=== PATIENT | female | born 1955 | race Caucasian/White ===

== ENCOUNTER 2020-05-14 11:20 | Emergency (ER) | payer OTHER ==
[2020-05-14] MEDS ORDERED: IBUPROFEN 400 MG TAB ONE (12:27)
[2020-05-14] MEDS ORDERED: HYDROCODONE/APAP 5/325 MG TAB ONE (12:27)
--- NOTE | 2020-05-14 12:55 | EDPHYS ---
Physician Documentation [facility] Name: Isis Peña Age: 65 yrs Sex: Female : 1955 Arrival Date: 05/14/2020 Time: 11: Bed 24 Private MD: ED Physician Radhames Otero HPI: 05/14 13:20 This 65 yrs old Female presents to ER via Wheelchair with complaints of Knee kb Pain. 13:21 The patient presents with decreased range of motion, pain, swelling, tenderness. The kb complaints affect the left knee. Context: The problem was sustained at home, resulted from 80lb dog ran into leg, the patient is not able to bear weight, the patient is not able to ambulate. Onset: The symptoms/episode began/occurred today. Modifying factors: The symptoms are alleviated by nothing. the symptoms are aggravated by movement, weight bearing, bending knee. Associated signs and symptoms: Pertinent positives: swelling, Pertinent negatives calf tenderness, fever, nausea, numbness, rash, tingling, vomiting, warmth, weakness. Treatment prior to arrival includes: no previous treatment. Severity of symptoms: At their worst the symptoms were moderate, in the emergency department the symptoms are unchanged. The patient has not experienced similar symptoms in the past. The patient has not recently seen a physician. Historical: - Allergies: 11:34 PENICILLINS; ll1 - PSHx: 11:34 ; Tonsillectomy; ll1 - Immunization history:: Flu vaccine is not up to date. - Social history:: Smoking status: Patient denies any tobacco usage or history of. ROS: 13:15 Constitutional: Negative for fever, chills, and weight loss, Cardiovascular: Negative kb for chest pain, palpitations, and edema, Respiratory: Negative for shortness of breath, cough, wheezing, and pleuritic chest pain, Abdomen/GI: Negative for abdominal pain, nausea, vomiting, diarrhea, and constipation, Back: Negative for injury and pain, Skin: Negative for injury, rash, and discoloration, Neuro: Negative for headache, weakness, numbness, tingling, and seizure. 13:15 MS/extremity: Positive for pain, swelling, tenderness, of the left knee. Exam: 13:19 Constitutional: This is a well developed, well nourished patient who is awake, alert, kb and in no acute distress. Head/Face: Normocephalic, atraumatic. Chest/axilla: Normal chest wall appearance and motion. Nontender with no deformity. No lesions are appreciated. Cardiovascular: Regular rate and rhythm with a normal S1 and S2. No gallops, murmurs, or rubs. Normal PMI, no JVD. No pulse deficits. Respiratory: Lungs have equal breath sounds bilaterally, clear to auscultation and percussion. No rales, rhonchi or wheezes noted. No increased work of breathing, no retractions or nasal flaring. Abdomen/GI: Soft, non-tender, with normal bowel sounds. No distension or tympany. No guarding or rebound. No evidence of tenderness throughout. Skin: Warm, dry with normal turgor. Normal color with no rashes, no lesions, and no evidence of cellulitis. Neuro: Awake and alert, GCS 15, oriented to person, place, time, and situation. Cranial nerves II-XII grossly intact. Motor strength 5/5 in all extremities. Sensory grossly intact. Cerebellar exam normal. Normal gait. 13:19 Musculoskeletal/extremity: Extremities: grossly normal except: noted in the left knee: decreased ROM, pain, swelling, tenderness, ROM: limited active range of motion, limited active range of motion due to pain, Circulation is intact in all extremities. Sensation intact. Weight bearing: is unable to bear weight. Vital Signs: 11:31 BP 136 / 84; Pulse 69; Resp 16; Temp 97.1; Pulse Ox 97% ; Weight 48.99 kg; Height 5 ft. ll1 4 in. (162.56 cm); Pain 9/10; 11:31 Body Mass Index 18.54 (48.99 kg, 162.56 cm) ll1 MDM: 11:37 Patient medically screened. kb 12:54 Data reviewed: vital signs, nurses notes. Data interpreted: Pulse oximetry: on room air kb is 97 %. Interpretation: normal. Counseling: I had a detailed discussion with the patient and/or guardian regarding: the historical points, exam findings, and any diagnostic results supporting the discharge/admit diagnosis, radiology results, the need for outpatient follow up, an OB/Gyne specialist, to return to the emergency department if symptoms worsen or persist or if there are any questions or concerns that arise at home. 05/14 11:37 Order name: Knee Left 3 View XRAY; Complete Time: 13:02 kb 05/14 12:54 Order name: Knee Immobilizer; Complete Time: 13:23 kb 05/14 12:54 Order name: Crutches; Complete Time: 13:23 kb Administered Medications: 12:16 Drug: Ibuprofen 400 mg Route: PO; em 13:23 Follow up: Response: No adverse reaction; Pain is decreased em 12:17 Drug: [place] 5 mg-325 mg 1 tabs Route: PO; em 13:24 Follow up: Response: No adverse reaction; Pain is decreased em Disposition: 05/15 08:13 Co-signature as Attending Physician, Radhames Otero MD I agree with the assessment and kdr plan of care. Disposition: 05/14/20 12:55 Discharged to Home. Impression: Other internal derangements of left knee. - Condition is Stable. - Discharge Instructions: Knee Sprain, [id number]. - Prescriptions for Cyclobenzaprine 10 mg Oral Tablet - take 1 tablet by ORAL route every 8 hours As needed; 21 tablet. Diclofenac Sodium 75 mg Oral Tablet, Delayed Release (E.C.) - take 1 tablet by ORAL route 2 times per day As needed; 30 tablet. - Medication Reconciliation Form, Thank You Letter, Antibiotic Education, Prescription Opioid Use form. - Follow up: Emergency Department; When: As needed; Reason: Worsening of condition. Follow up: Private Physician; When: 2 - 3 days; Reason: Recheck today's complaints, Continuance of care, Re-evaluation by your physician. Signatures: Dispatcher [employer] [facility] Shara Arambula, CASSEROLE PREPARER-C CASSEROLE PREPARER-Dengb Radhames Otero MD MD [facility] Kolton Hood, JUSTIN RN em Laurie Rodriguez RN RN ll1 Corrections: (The following items were deleted from the chart) 05/14 13:25 12:55 05/14/2020 12:55 Discharged to Home. Impression: Other internal derangements of em left knee. Condition is Stable. Forms are Medication Reconciliation Form, Thank You Letter, Antibiotic Education, Prescription Opioid Use. Follow up: Emergency Department; When: As needed; Reason: Worsening of condition. Follow up: Private Physician; When: 2 - 3 days; Reason: Recheck today's complaints, Continuance of care, Re-evaluation by your physician. kb
--- NOTE | 2020-05-14 12:55 | ER ---
Nurse's Notes [facility] Name: Isis Peña Age: 65 yrs Sex: Female : 1955 Arrival Date: 05/14/2020 Time: :27 Bed 24 Private MD: Diagnosis: Other internal derangements of left knee Presentation: 05/14 11:31 Chief complaint: Patient states: Left knee pain since Wednesday. A dog tackled her. ll1 Coronavirus screen: Client denies travel out of the [place] in the last 14 days. At this time, the client does not indicate any symptoms associated with coronavirus-19. Ebola Screen: Patient denies travel to an Ebola-affected area in the 21 days before illness onset. Initial Sepsis Screen: Does the patient meet any 2 criteria? No. Patient's initial sepsis screen is negative. Does the patient have a suspected source of infection? Yes: Bone or joint infection. Risk Assessment: Do you want to hurt yourself or someone else? Patient reports no desire to harm self or others. Onset of symptoms was May 10, 2020. 11:31 Method Of Arrival: Wheelchair ll1 11:31 Acuity: AMILCAR 3 ll1 Historical: - Allergies: 11:34 PENICILLINS; ll1 - PSHx: 11:34 ; Tonsillectomy; ll1 - Immunization history:: Flu vaccine is not up to date. - Social history:: Smoking status: Patient denies any tobacco usage or history of. Screenin:17 Abuse screen: Denies threats or abuse. Nutritional screening: No deficits noted. em Tuberculosis screening: No symptoms or risk factors identified. Fall Risk None identified. Assessment: 12:18 General: Appears in no apparent distress. uncomfortable, Behavior is calm, cooperative, em appropriate for age. Pain: Complains of pain in left knee Pain currently is 9 out of 10 on a pain scale. Pain began 2-3 days ago. Neuro: Level of Consciousness is awake, alert, obeys commands, Oriented to person, place, time, situation, Appropriate for age. Cardiovascular: Capillary refill < 3 seconds Patient's skin is warm and dry. Respiratory: Airway is patent Respiratory effort is even, unlabored, Respiratory pattern is regular, symmetrical. GI: Abdomen is flat. Derm: Skin is intact, is healthy with good turgor, Skin is pink, warm \T\ dry. Musculoskeletal: Circulation, motion, and sensation intact. Capillary refill < 3 seconds, Range of motion: limited in left knee Swelling present in left knee. 13:25 Reassessment: Patient appears in no apparent distress at this time. Patient and/or em family updated on plan of care and expected duration. Pain level reassessed. Patient is alert, oriented x 3, equal unlabored respirations, skin warm/dry/pink. Vital Signs: 11:31 BP 136 / 84; Pulse 69; Resp 16; Temp 97.1; Pulse Ox 97% ; Weight 48.99 kg; Height 5 ft. ll1 4 in. (162.56 cm); Pain 9/10; 11:31 Body Mass Index 18.54 (48.99 kg, 162.56 cm) ll1 ED Course: 11:27 Patient arrived in ED. ds1 11:33 Triage completed. ll1 11:34 Arm band placed on Patient placed in an exam room, on a stretcher. ll1 11:35 Kolton Hood, JUSTIN is Primary Nurse. em 11:37 Shara Arambula FNP-C is PHCP. kb 11:37 Radhames Otero MD is Attending Physician. kb 12:17 Patient has correct armband on for positive identification. Call light in reach. Adult em w/ patient. 12:54 Knee Left 3 View XRAY In Process Unspecified. EDMS 13:24 No provider procedures requiring assistance completed. Patient did not have IV access em during this emergency room visit. Crutch training done. Knee immobilizer applied on left knee. Administered Medications: 12:16 Drug: Ibuprofen 400 mg Route: PO; em 13:23 Follow up: Response: No adverse reaction; Pain is decreased em 12:17 Drug: [place] 5 mg-325 mg 1 tabs Route: PO; em 13:24 Follow up: Response: No adverse reaction; Pain is decreased em Outcome: 12:55 Discharge ordered by MD. kb 13:24 Discharged to home via wheelchair, with family. em 13:24 Condition: good 13:24 Discharge instructions given to patient, Instructed on discharge instructions, follow up and referral plans. medication usage, crutch walking, Demonstrated understanding of instructions, follow-up care, medications, crutch walking, Prescriptions given X 2. 13:25 Patient left the ED. em Signatures: Dispatcher [employer] Shara Bustos, DARAC [place]-Kolton Patrick, RN RN Iraida Boateng ds1 Laurie Rodriguez RN RN ll1
--- NOTE | 2020-05-14 13:00 | RAD REPORT ---
EXAM DESCRIPTION: RAD - Knee Left 3 View - 05/14/2020 12:54 pm CLINICAL HISTORY: PAIN COMPARISON: No comparisons FINDINGS: No acute fracture or dislocation is seen. No significant joint fluid. Mild medial compartm ent space narrowing present. Old fracture affecting the proximal of fibula noted. IMPRESSION: No acute finding suspected.
[2020-05-14 19:51] VITALS: BP 136/84; TEMP 97.1; O2SAT 97
== END 2020-05-14 13:25 | disposition home or self-care (01) ==
LOC: ER 11:20
DX: M23.8X2 Other internal derangements of left knee (principal); Z88.0 Allergy status to penicillin
CPT/HCPCS: 99284